=== PATIENT | female | born 1985 | race Caucasian/White ===

== ENCOUNTER → 2017-02-26 | Outpatient (CLI) | payer OTHER ==
--- NOTE | 2017-02-26 16:08 | KCIC ---
PROCEDURE Pelvic sonogram HISTORY Pelvic pain. TECHNIQUE Sonographic imaging of the pelvis was performed. COMPARISON None. FINDINGS The uterus measures 7.4 x 3.0 x 4.2 cm. The endometrial stripe measures 3 mm. The right ovary measures 1.4 x 1.5 x 1.5 cm. The left ovary measures 1.3 x 1.0 x 1.9 cm. There is normal blood flow within both ovaries. There is no pelvic free fluid. There are echogenic foci within the lower uterine segment and endocervical canal possibly due to calcifications. IMPRESSION 1. Sonographically unremarkable ovaries. 2. Possible punctate calcifications within the lower uterine segment and endocervical canal. Electronically signed by: Crystal Webster (February 26, 2017 16:06:44)
== END | disposition home or self-care (01) ==
LOC: KCIC US 15:04
PROVIDERS: ATTEND Nurse Practitioner Family
DX: R10.2 Pelvic and perineal pain (principal)
CPT/HCPCS: 76830; 76856

== ENCOUNTER → 2018-07-05 | Outpatient (CLI) | payer OTHER ==
--- NOTE | 2018-07-05 15:18 | KCIC ---
RS Compliance Statement: One or more of the following individualized dose reduction techniques were utilized for this examination: 1. Automated exposure control 2. Adjustment of the mA and/or kV according to patient size 3. Use of iterative reconstruction technique EXAMINATION: CT of the paranasal sinuses without contrast 07/05/2018 3:00 PM HISTORY: Chronic pansinusitis TECHNIQUE: CT of the paranasal sinuses was performed using sinus protocol without contrast. Coronal and sagittal reformats are provided. COMPARISON: None available FINDINGS: Review of the topogram demonstrates no abnormalities. The frontal sinuses are normal. The ethmoid sinuses are normal. The maxillary sinuses are normal. The sphenoid sinuses are normal. The ostiomeatal units are open bilaterally. Needle septum is deviated to the right. There is no associated trinh bullosa. There is minimal nasal spurring to the right. No areas of bony erosion are identified. The orbits are normal. Limited view of the frontal lobes is normal. Mastoid air cells are well aerated. Skull base is intact. IMPRESSION: Paranasal sinuses are well aerated. Electronically signed by: Emma Majano MD (07/05/2018 3:15 PM) [email or web address]
== END | disposition home or self-care (01) ==
LOC: KCIC CT 14:46
PROVIDERS: ATTEND Otolaryngology
DX: J32.4 Chronic pansinusitis (principal); J34.2 Deviated nasal septum
CPT/HCPCS: 70486

== ENCOUNTER → 2019-03-18 | Outpatient (CLI) | payer OTHER ==
--- NOTE | 2019-03-18 16:38 | KCIC ---
CT scan of the petrous portions of the temporal bones without contrast 03/18/2019 CLINICAL HISTORY: Left-sided hearing loss. TECHNIQUE: Unenhanced, contiguous, 0.6 mm axial sections were obtained through the petrous portions of both temporal bones. 1 mm reconstructed sagittal, axial and coronal images were obtained. One or more of the following individualized dose reduction techniques were utilized for this study: 1. Automated exposure control. 2. Adjustment of the mA and/or kV according to patient size. 3. Use of iterative reconstruction technique. FINDINGS: Comparison is made to a CT scan of the paranasal sinuses dated 07/05/2018. The bony structures of the external auditory canals, middle ear cavities and internal auditory canals are within normal limits bilaterally. The middle ear ossicles are intact bilaterally. No bony destruction is seen. No abnormal soft tissue mass is noted. The mastoid air cells are well aerated and are clear. The patient is post resection of a portion of the medial grant of both maxillary sinuses to include a portion of the ethmoid air cells bilaterally. Mild mucosal thickening is seen involving scattered ethmoid air cells bilaterally. IMPRESSION: Negative study. Electronically signed by: Matt Olvera MD (03/18/2019 4:35 PM) [id number]
== END | disposition home or self-care (01) ==
LOC: KCIC CT 10:28
PROVIDERS: ATTEND Otolaryngology
DX: H90.12 Conductive hearing loss, unilateral, left ear, with unrestricted hearing on the contralateral side (principal)
CPT/HCPCS: 70480

== ENCOUNTER → 2019-04-29 | Outpatient (CLI) | payer OTHER ==
--- NOTE | 2019-04-29 11:31 | KCIC ---
EXAMINATION: Magnetic resonance imaging (MRI) of the cervical spine without contrast 04/29/2019 11:00 AM HISTORY: Cervicalgia. Headaches and vertigo. Symptoms progressing for 6 months. TECHNIQUE: Multiplanar multi-weighted MRI of the cervical spine was performed without intravenous contrast using the standard cervical spine protocol. Contrast information: None administered COMPARISON: None available. FINDINGS: The alignment of the cervical spine is normal. Vertebral bodies demonstrate normal signal intensity on all sequences. No acute fracture is identified; however, if trauma is suspected, a CT scan would be a more sensitive examination for fractures. The craniocervical junction is normal. The visualized portions of the skull base and the posterior fossa are normal. The spinal cord demonstrates normal signal intensity on all sequences. Intervertebral disks have normal height and signal intensity. There are no annular fissures identified. No soft tissue abnormality is identified. Normal signal voids are present in the vertebral arteries. C2-C3: The disk is normal in configuration. There is no facet arthropathy. There is no uncovertebral joint disease. There is no neuroforaminal stenosis. There is no spinal canal stenosis. C3-C4: There is minimal disc bulge. There is no facet arthropathy. There is no uncovertebral joint disease. There is no neuroforaminal stenosis. There is no spinal canal stenosis. C4-C5: There is mild disc bulge. There is mild facet arthropathy. There is no uncovertebral joint disease. There is no neuroforaminal stenosis. There is no spinal canal stenosis. C5-C6: There is mild disc bulge. There is no facet arthropathy. There is no uncovertebral joint disease. There is no neuroforaminal stenosis. There is no spinal canal stenosis. C6-C7: There is mild disc bulge with left foraminal disc protrusion. There is no facet arthropathy. There is mild uncovertebral joint disease. There is mild left neuroforaminal stenosis. There is no spinal canal stenosis. C7-T1: The disk is normal in configuration. There is no facet arthropathy. There is no uncovertebral joint disease. There is no neuroforaminal stenosis. There is no spinal canal stenosis. IMPRESSION: Mild degenerative changes of the cervical spine as described in detail above. Mild disc bulge with left foraminal disc protrusion resulting in mild left neuroforaminal stenosis at C6-C7. Electronically signed by: Emma Majano MD (04/29/2019 11:28 AM) [id number]
== END | disposition home or self-care (01) ==
LOC: KCIC MRI 10:33
PROVIDERS: ATTEND Anesthesiology Pain Medicine
DX: M47.22 Other spondylosis with radiculopathy, cervical region (principal); M50.123 Cervical disc disorder at C6-C7 level with radiculopathy; M48.02 Spinal stenosis, cervical region
CPT/HCPCS: 72141

== ENCOUNTER → 2019-05-12 | Outpatient (CLI) | payer OTHER ==
--- NOTE | 2019-05-12 15:08 | KCIC ---
BRAIN W/O CONTRAST History: Headache Technique: Multiplanar, multi sequential MR imaging was performed of the brain without contrast. Comparison: CT orbits March 18, 2019 Findings: No acute infarct. No intracranial hemorrhage. No mass effect. No hydrocephalus. Extra-axial spaces are unremarkable. Imaged orbits are unremarkable. Minimal right anterior ethmoid mucosal thickening. Mastoid air cells are clear. Impression: 1. No acute intracranial abnormality. Electronically signed by: Juanito Burciaga DO (05/12/2019 3:05 PM) [id number]
== END | disposition home or self-care (01) ==
LOC: KCIC MRI 13:04
PROVIDERS: ATTEND Otolaryngology
DX: J34.89 Other specified disorders of nose and nasal sinuses (principal)
CPT/HCPCS: 70551

== ENCOUNTER → 2019-11-17 | Outpatient (CLI) | payer OTHER ==
--- NOTE | 2019-11-17 16:39 | KCIC ---
CHEST PA LATERAL History: Cough Comparison: None. Findings: Frontal and lateral views of the chest were obtained. The cardiomediastinal silhouette is normal. Pulmonary vasculature is normal. Right lower lung field nodular infiltrate is questioned. Corresponding finding is not definitely evident on the lateral view. No pleural effusion or pneumothorax is seen. There is no acute bone abnormality. IMPRESSION: Right lower lung field nodular infiltrate is questioned on the frontal view. This may return to be in part artifactual due to overlapping anatomical shadows. Interval follow-up chest x-rays in all with nipple markers to assess for resolution in 6 weeks recommended. Electronically signed by: Shankar Beach MD (11/17/2019 4:35 PM) [facility]
== END | disposition home or self-care (01) ==
LOC: KCIC 11:54
PROVIDERS: ATTEND Nurse Practitioner Family
DX: R05 Cough (principal)
CPT/HCPCS: 71046

== ENCOUNTER → 2019-11-24 | Outpatient (CLI) | payer OTHER ==
--- NOTE | 2019-11-24 12:58 | KCIC ---
Frontal chest radiograph and 3 additional views of the left ribs 11/24/2019 INDICATION: Cough yesterday with rib pain on the left subsequently COMPARISON STUDY: Chest radiograph November 17, 2019 FINDINGS: No pneumothorax, pleural effusion, or acute focal infiltrate is seen. Heart size is normal. There is a minimally displaced fracture of the anterolateral left second rib. No other acute osseous abnormalities are seen. IMPRESSION: Mildly displaced fracture, anterolateral left second rib Electronically signed by: Deny Joyce MD (11/24/2019 12:55 PM) [id number]
== END | disposition home or self-care (01) ==
LOC: KCIC 11:40
PROVIDERS: ATTEND Nurse Practitioner Family
DX: S22.32XA Fracture of one rib, left side, initial encounter for closed fracture (principal); X58.XXXA Exposure to other specified factors, initial encounter; Y93.89 Activity, other specified; Y92.89 Other specified places as the place of occurrence of the external cause; Y99.8 Other external cause status
CPT/HCPCS: 71101

== ENCOUNTER → 2020-12-24 | Outpatient (CLI) | payer OTHER ==
--- NOTE | 2020-12-24 17:49 | KCIC ---
PROCEDURE: XR SHOULDER_RIGHT 2+ VIEWS STUDY DATE: 12/24/2020 CLINICAL INDICATION / HISTORY: Reason: Right shoulder pain 1 week, no injury. / Spl. Instructions: / History: . TECHNIQUE: AP internal and external rotation views with a Y- view were obtained. COMPARISON: None FINDINGS: No fracture, dislocation or bone destruction is identified. There are no degenerative horta ges at the right AC joint. No calcifications are seen in relation to the rotator cuff insertion. IMPRESSION: No acute osseous abnormality. Electronically signed by: Jeremiah Christian MD (12/24/2020 5:46 PM) [id number]
== END ==
LOC: KCIC 12:52
PROVIDERS: ATTEND Nurse Practitioner Family
DX: M25.511 Pain in right shoulder (principal)
CPT/HCPCS: 73030

== ENCOUNTER → 2021-01-28 | Outpatient (CLI) | payer OTHER ==
--- NOTE | 2021-01-28 13:57 | KCIC ---
MR CERVICAL SPINE WO DATE: 01/28/2021 1:00 PM INDICATION: Reason: RIGHT SHOULDER PAIN / Spl. Instructions: / History: Pain and pinching in right side of neck and down shoulder x 6 weeks. NKI. TECHNIQUE: Multiplanar multisequence magnetic resonance imaging of the cervical spine was performed w ithout administration of intravenous contrast using the standard cervical spine protocol. COMPARISON: 04/29/2019. FINDINGS: The cervical spine is normally aligned. No acute fracture. Mild multilevel degenerative disc desicca tion and disc height loss. Bone marrow signal intensity is normal. The spinal cord is normal in signal intensity. On the limited views of the cranial cavity and brain, the cerebellum and carol have normal morphology and signal characteristics. No Chiari malformation. No soft tissue abnormality. Normal signal voids are present in the vertebral arteries. C2-3: No significant spinal canal stenosis or neural foraminal narrowing. C3-4: Minimal disc osteophyte complex. No significant spinal canal stenosis or neural foraminal narro wing. C4-5: Mild disc osteophyte complex. Mild facet arthropathy. No significant spinal canal stenosis or n eural foraminal narrowing. C5-6: Mild disc osteophyte complex. Mild facet arthropathy. No significant spinal canal stenosis or n eural foraminal narrowing. C6-7: No significant spinal canal stenosis or neural foraminal narrowing. C7-T1: No significant spinal canal stenosis or neural foraminal narrowing. IMPRESSION: Mild cervical spondylosis, not progressed from the prior exam. Electronically signed by: Poncho Ramírez MD (01/28/2021 1:54 PM) [id number]
== END ==
LOC: KCIC MRI 12:50
PROVIDERS: ATTEND Orthopaedic Surgery
DX: M47.812 Spondylosis without myelopathy or radiculopathy, cervical region (principal); M25.78 Osteophyte, vertebrae; M25.511 Pain in right shoulder
CPT/HCPCS: 72141

== ENCOUNTER → 2021-04-24 | Outpatient (CLI) | payer OTHER ==
--- NOTE | 2021-04-24 14:18 | KCIC ---
STUDY: MRI right upper extremity without contrast INDICATION: Pain along the medial margin of the scapula. COMPARISON: Right shoulder radiographs 12/24/2020. TECHNIQUE: Multiplanar MR imaging centered on the right scapula and performed without the use of intr avenous contrast. FINDINGS: Bones: No fracture or focally aggressive marrow signal abnormality. No significant AC joint arthrosis . The visualized thoracic vertebral bodies and disc spaces maintain normal height. Findings involving the cervical spine detailed in a separate report. Musculotendinous: Normal bulk and signal of the right chest wall, back and shoulder musculature. The study is not tailored for close evaluation of the rotator cuff but there is no evidence for a high-gr wenceslao or full-thickness tear. Miscellaneous: No fluid or edema at the expected location of the scapulothoracic bursa. No abnormalit y of the superficial soft tissues or axilla. No thyroid nodule is identified. IMPRESSION: No osseous or soft tissue abnormality is identified to explain the patient's pain reportedly at the m edial scapula. Specifically there is no edema or fluid at the expected location of the scapulothoraci c bursa. Electronically signed by: LIA GOLDBERG MD (04/24/2021 2:15 PM) [id number]
== END ==
LOC: KCIC MRI 12:28
PROVIDERS: ATTEND Orthopaedic Surgery
DX: M25.511 Pain in right shoulder (principal)
CPT/HCPCS: 73221